=== PATIENT | female | born 1980 | race Caucasian/White ===

== ENCOUNTER → 2017-04-05 | Outpatient (REF) | payer OTHER ==
[~2017-04-05] MED LIST: ACET50TA PO; ANUS2.5C2 TOP; DOCU10ELUD OR; IBUP600T26 OR; MOM30SS PO; PROZ20CA11 PO
[2017-04-05 11:29] LABS: BASO # 0.1 K/mm3 (0.0-0.2); BASO % 0.7 % (0.0-1.0); EOS # 0.5 K/mm3 (0.0-0.50); EOS % 4.8 % (0.0-3.0); LARGE UNSTAINED CELL # 0.1 K/mm3 (0.0-0.4); LARGE UNSTAINED CELL % 1.4 % (0.0-4.0); LYMPH # 2.9 K/mm3 (1.5-4.5); LYMPH % 28.7 % (24.0-44.0); MEAN CORPUSCULAR HEMOGLOBIN 32.1 pg (27.0-33.0); MEAN CORPUSCULAR HGB CONC 35.3 g/dl (32.0-36.5); MEAN CORPUSCULAR VOLUME 91.1 fl (80.0-96.0); MONO # 0.4 K/mm3 (0.0-0.8); MONO % 4.4 % (0.0-5.0); NEUTROPHILS # 5.9 K/mm3 (1.8-7.7); NEUTROPHILS % 59.8 % (36.0-66.0); PLATELET COUNT, AUTOMATED 228 k/mm3 (150-450); RED CELL DISTRIBUTION WIDTH 13.3 % (11.5-14.5); WHITE BLOOD COUNT 9.9 K/mm3 (4.0-10.0)
[2017-04-05 11:56] LABS: ERYTHROCYTE SEDIMENTATION RATE 26 mm/hr (0-20)
[2017-04-05 12:47] LABS: ALBUMIN 4.1 GM/DL (3.2-5.2); ALBUMIN/GLOBULIN RATIO 1.08 (1.00-1.93); ALKALINE PHOSPHATASE 79 U/L (45-117); ALT/SGPT 39 U/L (12-78); ANION GAP 9 MEQ/L (8-16); AST/SGOT 25 U/L (15-37); BILIRUBIN,TOTAL 0.3 MG/DL (0.2-1.0); BLOOD UREA NITROGEN 10 MG/DL (7-18); CALCIUM LEVEL 9.1 MG/DL (8.5-10.1); CARBON DIOXIDE LEVEL 23 MEQ/L (21-32); CHLORIDE LEVEL 107 MEQ/L (98-107); CREATININE FOR GFR 0.81 MG/DL (0.55-1.02); GLOMERULAR FILTRATION RATE > 60.0 (>60); GLUCOSE, FASTING 99 MG/DL (70-105); POTASSIUM SERUM 3.6 MEQ/L (3.5-5.1); SODIUM LEVEL 139 MEQ/L (136-145); TOTAL PROTEIN 7.9 GM/DL (6.4-8.2)
== END ==
LOC: M LABDRAW1 09:37
PROVIDERS: ATTEND Psychiatry & Neurology Neurology
DX: R51 Headache (principal)

== ENCOUNTER 2020-12-25 17:26 | Emergency (ER) | payer OTHER, SELFPAY ==
[~2020-12-25] VITALS: Ht 162.6 cm; Wt 104.5 kg
[~2020-12-25 17:26] MED LIST changes: -ACET50TA PO; -DOCU10ELUD OR; +DOCU5LIQ OR; +MAPA500T17 PO
[2020-12-25] MEDS ORDERED: FLUO20CA22 (17:35)
[2020-12-25] MEDS ORDERED: HYDR200T3 (17:35)
[2020-12-25] MEDS ORDERED: CLINDAMYCIN 150MG CAPSULE PO ONE (20:00)
[2020-12-25] MEDS ORDERED: NORCO 5/325MG TABLET (BULK FOR ED) PO ONE (20:00)
[2020-12-25] MEDS ORDERED: HYDR-3715 PO (20:09)
[2020-12-25] MEDS ORDERED: ANBE20GE TOP (20:09)
[2020-12-25] MEDS ORDERED: MAGICMW SSP (20:09)
[2020-12-25] MEDS ORDERED: CLEO300C2 PO (20:09)
[2020-12-25 20:24] VITALS: BP 139/64
== END 2020-12-25 20:29 | disposition home or self-care (01) ==
LOC: M ED 17:26
DX: K03.81 Cracked tooth (principal); K08.89 Other specified disorders of teeth and supporting structures; Z88.0 Allergy status to penicillin; Z88.6 Allergy status to analgesic agent